=== PATIENT | female | born 1955 | race African-American/Black ===

== ENCOUNTER → 2016-09-12 | Outpatient (CLI) | payer OTHER ==
[~2016-09-12] MED LIST: BIPOLAR MED; BLOOD PRESSURE MED
--- NOTE | ~2016-09-12 | CR229 ---
[facility] A Service of [facility] & [facility] RADIOLOGY TEXT RESULTS PATIENT: ESTRELLITA REYES LOCATION: [facility] : 55 UNIT #: [id number] AGE: [address]: Michael Mcelroy MD SEX: F ORDER DR: [id number] [address] [address] [id number] O MR#: [id number] Acc #: [id number] NAME: ESTRELLITA REYES : 1955 SEX: F STUDY DATE/TIME: 09/12/2016 21:15 UNIT: [facility] ROOM: STUDY DESCRIPTION: CR Shoulder Min 2 View Lt Attending Physician: Michael Mcelroy M.D. Ordering Physician: Michael Mcelroy M.D. Primary Care Physician: Elvira Babb Aprn MEDICAL IMAGING REPORT This report is preliminary unless electronic signature is present. EXAM Left shoulder 3 views, 09/12/2016 HISTORY Shoulder pain and limited range of motion, chronic. No injury. FINDINGS 3 views left shoulder demonstrate satisfactory bone alignment. No fracture, joint space narrowing or dislocation. No abnormal sclerosis. IMPRESSION Negative. Dictated by... Maciel Conde M.D. THIS IS AN ELECTRONICALLY VERIFIED REPORT Maciel Conde M.D. at 09/13/2016 10:57 PM [email or web address] TD: 09/13/2016 01:53 JOB #: [id number] MEDICAL IMAGING REPORT Page 1 of 1
== END | disposition home or self-care (01) ==
LOC: SRAD 21:00
DX: M25.512 Pain in left shoulder (principal); M25.612 Stiffness of left shoulder, not elsewhere classified
CPT/HCPCS: 73030